=== PATIENT | male | born 1950 | race Caucasian/White ===

== ENCOUNTER 2017-07-04 11:05 | Emergency (ER) | payer MEDICARE ==
[~2017-07-04] VITALS: Ht 152.4 cm; Wt 72.0 kg
[2017-07-04 12:40] VITALS: BP 146/86
[2017-07-04] MEDS ORDERED: AUGMENTIN500TAB PO (12:57)
== END 2017-07-04 13:03 | disposition home or self-care (01) ==
LOC: ED 11:05
PROC: 0HCDXZZ Extirpation of Matter from Right Lower Arm Skin, External Approach (ICD-10-PCS; principal; 2017-07-04)
DX: S61.541A Puncture wound with foreign body of right wrist, initial encounter (principal); I10 Essential (primary) hypertension; J44.9 Chronic obstructive pulmonary disease, unspecified; W45.8XXA Other foreign body or object entering through skin, initial encounter; W22.8XXA Striking against or struck by other objects, initial encounter

== ENCOUNTER 2021-12-13 09:22 | Day surgery (SDC) | payer MEDICARE ==
[~2021-12-13] VITALS: Ht 177.8 cm; Wt 68.0 kg
[~2021-12-13 09:22] MED LIST: ALLERGY RELF10 M3 PO; AUGMENTIN500TAB PO; FLONASE AL50 MCG/ACT; MAXZIDE PO; ROPINIROLE0.5 MG PO; TYLENOL PM PO
[2021-12-13 12:23] VITALS: BP 147/58
== END 2021-12-13 12:17 | disposition home or self-care (01) ==
LOC: ENDO 09:22
PROVIDERS: ATTEND Surgery
PROC: 0DJD8ZZ Inspection of Lower Intestinal Tract, Via Natural or Artificial Opening Endoscopic (ICD-10-PCS; principal; 2021-12-13)
DX: Z12.11 Encounter for screening for malignant neoplasm of colon (principal); I10 Essential (primary) hypertension; F17.200 Nicotine dependence, unspecified, uncomplicated

== ENCOUNTER 2022-04-27 20:07 | Emergency (ER) | payer MEDICARE ==
[2022-04-28] MEDS ORDERED: CLINDAMYCIN300 M1 PO (07:42)
== END 2022-04-27 21:08 | disposition left against medical advice (07) ==
LOC: ED 20:07 → LWOBS 21:08
DX: Z53.21 Procedure and treatment not carried out due to patient leaving prior to being seen by health care provider (principal)

== ENCOUNTER 2022-04-28 04:41 | Emergency (ER) | payer MEDICARE ==
[~2022-04-28] VITALS: Ht 177.8 cm; Wt 68.1 kg
[2022-04-28] VITALS (10 sets, daily range): BP systolic 117–159; BP diastolic 64–98
[2022-04-28 05:51] LABS: HEMATOCRIT 41.4 % (39.0-50.0); HEMOGLOBIN 13.7 g/dl (14.0-18.0); IMMATURE GRANULOCYTES 0.2 % (0.0-5.0); MEAN CELL VOLUME 97.9 fL CALC (80.0-100.0); MEAN CORPUSCULAR HGB 32.4 pG CALC (26.0-32.0); MEAN CORPUSCULAR HGB CONC 33.1 g/dL CAL (32.0-36.0); NEUT# 9.63 thou/uL (1.82-7.42); RED BLOOD COUNT 4.23 mill/uL (4.70-6.10)
[2022-04-28 05:59] LABS: ALBUMIN 4.2 g/dL (3.2-5.0); ALKALINE PHOSPHATASE 72 u/l (38-126); ANION GAP 12 (6-22 (CALC)); BILIRUBIN, TOTAL 1.5 mg/dL (0.0-1.4); BUN 15 mg/dL (8-23); BUN/CREATININE RATIO 26 (12-20 (CALC)); CARBON DIOXIDE 26 mmol/l (22-30); CHLORIDE 102 mmol/l (95-108); CREATININE 0.6 mg/dL (0.7-1.3); GFR FOR AFR.AMER. > 60 ML/MIN (>=60 (CALC)); GFR OTHER RACES > 60 ML/MIN (>=60 (CALC)); POTASSIUM 3.8 mmol/l (3.5-5.1); SGOT/AST 22 u/l (19-48); SODIUM 136 mmol/l (137-146); TOTAL PROTEIN 7.6 g/dL (6.3-8.2)
[2022-04-28] MEDS ORDERED: CLINDAMYCIN300 M1 PO (07:42)
== END 2022-04-28 07:44 | disposition left against medical advice (07) ==
LOC: ED 04:41
PROVIDERS: Emergency Medicine
DX: J36 Peritonsillar abscess (principal); Z20.822 Contact with and (suspected) exposure to COVID-19; I10 Essential (primary) hypertension; Z53.29 Procedure and treatment not carried out because of patient's decision for other reasons
CPT/HCPCS: Q9967

== ENCOUNTER 2023-04-21 12:25 | Emergency (ER) | payer MEDICARE ==
[~2023-04-21] VITALS: Ht 177.8 cm; Wt 65.8 kg
[~2023-04-21 12:25] MED LIST changes: +CLINDAMYCIN300 M1 PO
[2023-04-21 13:21] VITALS: BP 129/74
== END 2023-04-21 13:29 | disposition left against medical advice (07) ==
LOC: ED 12:25
DX: S92.001A Unspecified fracture of right calcaneus, initial encounter for closed fracture (principal); M77.31 Calcaneal spur, right foot; I10 Essential (primary) hypertension; F17.200 Nicotine dependence, unspecified, uncomplicated; W11.XXXA Fall on and from ladder, initial encounter; Z53.29 Procedure and treatment not carried out because of patient's decision for other reasons

== ENCOUNTER 2023-04-23 00:40 | Emergency (ER) | payer MEDICARE ==
[~2023-04-23] VITALS: Ht 177.8 cm; Wt 62.7 kg
[2023-04-23] VITALS (9 sets, daily range): BP systolic 107–126; BP diastolic 45–63
[2023-04-23 01:40] LABS: BASO% 0.3 % (0-3); EOS% 0.4 % (0-8); HEMATOCRIT 36.2 % (39.0-50.0); LYMPH% 6.1 % (15-41); MEAN CELL VOLUME 93.8 fL CALC (80.0-100.0); MEAN CORPUSCULAR HGB 30.3 pG CALC (26.0-32.0); MEAN CORPUSCULAR HGB CONC 32.3 g/dL CAL (32.0-36.0); MONO% 7.7 % (2-13); NEUT# 9.16 thou/uL (1.82-7.42); NEUT% 84.5 % (42-76); RED BLOOD COUNT 3.86 mill/uL (4.70-6.10); RED CELL DISTRI WIDTH 14.5 % (11.5-15.5)
[2023-04-23 01:45] LABS: HEMOGLOBIN 11.7 g/dl (14.0-18.0)
[2023-04-23 01:52] LABS: ALBUMIN 3.7 g/dL (3.2-5.0); ALKALINE PHOSPHATASE 80 u/l (38-126); ANION GAP 10 (6-22 (CALC)); BILIRUBIN, TOTAL 0.4 mg/dL (0.2-1.3); BUN 17 mg/dL (8-23); BUN/CREATININE RATIO 28 (12-20 (CALC)); CARBON DIOXIDE 27 mmol/l (22-30); CHLORIDE 101 mmol/l (95-108); CREATININE 0.6 mg/dL (0.7-1.3); GFR FOR AFR.AMER. > 60 ML/MIN (>=60 (CALC)); GFR OTHER RACES > 60 ML/MIN (>=60 (CALC)); LIPASE 52 u/l (23-300); POTASSIUM 3.8 mmol/l (3.5-5.1); SGOT/AST 41 u/l (19-48); SODIUM 135 mmol/l (137-146); TOTAL PROTEIN 6.6 g/dL (6.3-8.2)
== END 2023-04-23 03:29 | disposition home or self-care (01) ==
LOC: ED 00:40
PROVIDERS: Emergency Medicine
DX: K59.00 Constipation, unspecified (principal); I10 Essential (primary) hypertension; F17.200 Nicotine dependence, unspecified, uncomplicated